=== PATIENT | female | born 2000 | race Hispanic/Latino ===

== ENCOUNTER 2025-09-15 17:48 | Emergency (ER) | payer MEDICAID, OTHER ==
[~2025-09-15] VITALS: Ht 162.6 cm; Wt 86.2 kg
[2025-09-15 18:10] VITALS: BP 134/78; PULSE 88; RESP 16; TEMP 98.6; O2SAT 100
[2025-09-15] MEDS ORDERED: METH-662 PO (18:13)
[2025-09-15] MEDS ORDERED: KETO10TA2 PO (18:13)
--- NOTE | 2025-09-15 18:14 | ERN ---
ED Note History of Present Illness Stated Complaint: LOW BACK PAIN Chief Complaint: Low Back Pain/Injury Time Seen by MD: 17:51 Time Seen by Midlevel: 17:56 Dictation: 25-YEAR-OLD COMPLAINING OF LEFT LOWER BACK PAIN ONSET JUST PRIOR TO ARRIVAL SHE HAS BEEN DOWN TO INSTALL A SHELF. PATIENT STATES SHE FEELS A PULL AND COLD. DENIES THE PAIN RADIATING TO THE EXTREMITY. DENIES ANY NUMBNESS, TINGLING, BLADDER OR BOWEL INCONTINENCE. Allergies: Coded Allergies: No Known Drug Allergies (Unverified Allergy, Unknown, 09/15/25) Past Medical History Past Medical History: No Pertinent History Surgical History: None Review of System Dictation CONSTITUTIONAL: NEGATIVE FOR FEVER,CHILLS, AND WEIGHT LOSS EYES: NEGATIVE FOR INJURY, PAIN,REDNESS, AND DISCHARGE ENT: NEGATIVE FOR INJURY,PAIN OR SWELLING CARDIOVASCULAR: NEGATIVE FOR CHEST PAIN, PALPITATIONS, AND EDEMA RESPIRATORY: NEGATIVE FOR SHORTNESS OF BREATH, COUGH, AND WHEEZING, ABDOMEN/GI: NEGATIVE FOR ABDOMINAL PAIN, NAUSEA, VOMITING, DIARRHEA, AND CONSTIPATION BACK: NEGATIVE FOR INJURY AND PAIN : NEGATIVE FOR INJURY, BLEEDING AND DISCHARGE MS/EXTREMITY: NEGATIVE FOR INJURY AND DEFORMITY, LEFT LOWER BACK PAIN SKIN: NEGATIVE FOR RASH, AND DISCOLORATION NEURO: NEGATIVE FOR HEADACHE, WEAKNESS, NUMBNESS, TINGLING, AND SEIZURE PSYCH: NEGATIVE FOR SUICIDE IDEATION, HOMICIDAL IDEATION, AND HALLUCINATIONS Review of Systems: was completed Initial Vital Sign VS Vital Signs Date Time Temp Pulse Resp B/P (MAP) Pulse Ox O2 Delivery O2 Flow Rate FiO2 09/15/25 17:49 98.6 97 16 141/87 100 Room Air Physical Exam Dictation GENERAL: AWAKE, ALERT, NAD HEAD/FACE: NORMOCEPHALIC, ATRAUMATIC EYES: PERRL, EOMI, VISION AT BASELINE ENT: ORAL CAVITY CLEAR, TMS CLEAR, NO SIGNS OF INFECTION NECK: TRACHEA MIDLINE, SUPPLE, NO NUCHAL RIGIDITY CARDIOVASCULAR: RRR, NORMAL S1/S2, NO MRGS, NO JVD RESPIRATORY: CTAB, NO RESPIRATORY DISTRESS, NO RALES OR WHEEZES ABDOMEN: SOFT, NON-TENDER, NON-DISTENDED, NORMAL BOWEL SOUNDS, NO GUARDING OR REBOUND. SKIN: WARM, DRY, NORMAL TURGOR, NO RASH MS/EXTREMITY: PULSES EQUAL, NO CYANOSIS, NEUROVASCULAR INTACT, FROM, PAIN TO THE LEFT LOWER BACK ON PALPATION, NO L-SPINE MIDLINE TENDERNESS. NEURO: COAX4, GCS 15, STRENGTH 5/5, CN 2-12 INTACT, NORMAL CEREBELLAR EXAM, NORMAL GAIT, PSYCH: NORMAL BEHAVIOR, MOOD, AND AFFECT NORMAL Results (Laboratory/Radiology) Labs Reviewed?: Yes ED Course ED Course Orders Procedure Category Date Status Time Ketorolac PHA 09/15/25 Complete Tromethamine 15mg/Ml 18:00 Orphenadrine Citrate PHA 09/15/25 Complete (Norflex) 18:00 Current Medications Medications (Trade) Dose Ordered Sig/Belinda Route PRN Reason Start Time Stop Time Status Last Admin Dose Admin Ketorolac Tromethamine (toRADol) 15 mg ONCE ONCE IM 09/15/25 18:00 09/15/25 18:02 DC Orphenadrine Citrate (Norflex) 60 mg ONCE ONCE IM 09/15/25 18:00 09/15/25 18:02 DC Vital Signs Date Time Temp Pulse Resp B/P (MAP) Pulse Ox O2 Delivery O2 Flow Rate FiO2 09/15/25 17:49 98.6 97 16 141/87 100 Room Air Medical Decision Making MDM MDM: 25-YEAR-OLD COMPLAINING OF LEFT LOWER BACK PAIN ONSET JUST PRIOR TO ARRIVAL SHE HAS BEEN DOWN TO INSTALL A SHELF. PATIENT STATES SHE FEELS A PULL AND COLD. DENIES THE PAIN RADIATING TO THE EXTREMITY. DENIES ANY NUMBNESS, TINGLING, BLADDER OR BOWEL INCONTINENCE. PATIENT RECEIVED ANTI-INFLAMMATORY AND MUSCLE RELAXER IN THE EMERGENCY ROOM. DISCUSSED WITH THE PATIENT AND MOTHER FIND LIKELY THE ETIOLOGY OF THE PAIN RELATED TO MUSCLE STRAIN FROM BENDING OVER. EDUCATED TO 10 LB DAYS OFF AND ON RED FLAG SYMPTOMS OF WHEN TO RETURN BACK TO THE EMERGENCY ROOM. BOTH PATIENT AND MOTHER VERBALIZED UNDERSTANDING, ANSWERED ALL QUESTIONS. DIFFERENTIAL DIAGNOSIS: MUSCLE STRAIN, MUSCLE SPASM, MUSCULOSKELETAL PAIN RATIONALE: TESTS CONSIDERED AND ORDERED SECONDARY TO SHARED DECISION MAKING INCLUDE: PREVIOUS OUTSIDE RECORDS REVIEWED: OLD ER VISITS. RISK OF COMPLICATION AND/OR MORBIDITY OR MORTALITY OF PATIENT MANAGEMENT: NONE MEDICATIONS-PER MEDICATION RECONCILIATION NEED FOR HOSPITALIZATION: PATIENT DOES NOT MEET CRITERIA FOR HOSPITALIZATION. NEED FOR EMERGENCY MAJOR/MINOR SURGERY: NO THERE ARE NO SOCIAL CONCERNS WITH THIS PATIENT. PRESCRIPTION DRUG MANAGEMENT PRESCRIPTIONS WILL INCLUDE SYMPTOMATIC CARE PATIENT'S PRIOR EXTERNAL MEDICAL RECORDS FROM OTHER ER VISITS WERE REVIEWED BY ME INDICATED. PRIOR TESTING AND RESULTS FROM PREVIOUS VISITS WERE REVIEWED. PRIOR TESTS WERE TAKEN INTO ACCOUNT WITH MEDICAL DECISION MAKING AND RESOURCE UTILIZATION, INDEPENDENT HISTORIAN/HISTORIANS WERE USED TO OBTAIN COMPLETE MEDICAL HISTORY. I INDEPENDENTLY INTERPRETED THE TEST THAT WERE PERFORMED, RESULTS WERE REVIEWED BY ME AND CONSIDERED FINDINGS ON RADIOLOGY IF ORDERED. MEDICAL MANAGEMENT AND EXAMINATION INTERPRETATION DISCUSSIONS WERE HAD BY ME WITH OTHER QUALIFIED HEALTHCARE PROFESSIONALS INDICATED FOR THE PATIENT'S CARE. DX & DISP Disposition: Discharge Departure Impression: Primary Impression: Muscle spasm Condition: Stable Scripts Methocarbamol (Robaxin) 750 Mg Tab 1 TAB PO TID for 5 Days, #15 TAB 0 Refills Prov: JOLIE ROA CNP 09/15/25 Ketorolac Tromethamine (Ketorolac Tromethamine) 10 Mg Tablet 1 TAB PO Q6HPRN PRN for pain for 5 Days, #20 TAB 0 Refills Prov: JOLIE ROA CNP 09/15/25 Additional Instructions: TAKE MEDICATIONS PRESCRIBED. YOU CAN ADD TYLENOL IF NEEDED FOR PAIN CONTROL. RETURN TO THE HOSPITAL IF YOU DEVELOP ANY NUMBNESS, TINGLING, WEAKNESS, BLADDER OR BOWEL INCONTINENCE. Time of Disposition: 18:11 I have reviewed the case, and I agree with, Diagnosis and Plan JOLIE ROA CNP Sep 15, 2025 18:13
[2025-09-15] MEDS: ORPHENADRINE 60MG/2ML IM ONE (18:53)
== END 2025-09-15 19:00 | disposition home or self-care (01) ==
LOC: EDH 17:48
DX: M62.838 Other muscle spasm (principal)
CPT/HCPCS: 99284; 96372; J1885; J2360